=== PATIENT | female | born 1990 | race Caucasian/White ===

== ENCOUNTER 2021-01-16 10:55 | Observation (INO) ==
[2021-01-16] MEDS ORDERED: 0.9 % Sodium Chloride 1,000 ML ONE (11:29)
[2021-01-16] MEDS ORDERED: Isovue-370 500 ML BOTTLE IVP ONE (11:40)
[2021-01-16 11:56] LABS: Activated Partial Thrombo Time 29.5 Seconds (26.0-36.0); D-Dimer < 215 ng/mLFEU (0-500)
[2021-01-16 13:24] LABS: Basophils % 0.4 %; Eosinophils % 0.2 %; Hematocrit 51.5 % (35.3-44.9); Hemoglobin 17.4 g/dL (11.5-15.4); Immature Granulocytes % 0.2 % (0-4); Lymphocytes # 1.8 K/mcL (0.6-4.6); Lymphocytes % 19.8 %; Mean Corpuscular HGB Conc 33.8 g/dL (31.6-35.5); Mean Corpuscular Hemoglobin 28.2 pg (28.0-33.3); Mean Corpuscular Volume 83.6 fL (83.0-100.0); Mean Platelet Volume 9.9 fL (9.4-12.4); Monocytes # 0.8 K/mcL (0.0-1.3); Monocytes % 8.1 %; Neutrophils # 6.6 K/mcL (1.6-8.9); Platelet Count 280 K/mcL (140-400); Red Blood Count 6.16 M/mcL (3.82-4.97); Red Cell Distribution Width 12.9 % (11.5-14.5); Segmented Neutrophils % 71.3 %; White Blood Count 9.3 K/mcL (4.3-11.1)
[2021-01-16 13:50] LABS: Alanine Aminotransferase 189 Units/L (7-52); Albumin 4.8 g/dL (3.5-5.7); Albumin/Globulin Ratio 1.3 (1.1-2.2); Alkaline Phosphatase 92 Units/L (34-104); Aspartate Amino Transferase 121 Units/L (13-39); BUN/Creatinine Ratio 14 (6-26); Bilirubin,Direct 0.2 mg/dL (0.0-0.2); Bilirubin,Indirect 0.8 mg/dL (0.0-1.0); Blood Urea Nitrogen 11 mg/dL (6-20); Calcium 9.5 mg/dL (8.6-10.3); Carbon Dioxide 25 mEq/L (23-29); Chloride 102 mEq/L (98-107); Globulin 3.8 g/dL (2.4-3.5); Glucose 94 mg/dL (70-105); Osmolality,Calculated 283 (280-300); Potassium 3.6 mEq/L (3.5-5.1); Sodium 137 mEq/L (136-145); Total Protein 8.6 g/dL (6.4-8.9); eGFR For African Americans > 60 (> 60); eGFR For Non-African Americans > 60 (> 60)
[2021-01-16 16:05] LABS: Thyroid Stimulating Hormone 1.212 mcIU/mL (0.340-5.600); Troponin I 0.35 ng/mL (< 0.04)
[2021-01-16 16:09] LABS: Amphetamine Screen,Urine Positive ng/mL (Cutoff=1000); Barbiturate Screen,Urine Negative ng/mL (Cutoff=200); Benzodiazepines Screen,Urine Negative ng/mL (Cutoff=200); Cannabinoid Screen,Urine Negative ng/mL (Cutoff = 50); Cocaine Screen,Urine Negative ng/mL (Cutoff= 300); Opiate Screen,Urine Negative ng/mL (Cutoff=300); Phencyclidine Screen,Urine Negative ng/mL (Cutoff=25)
[2021-01-16] MEDS ORDERED: Naloxone 0.4 MG/ML INJ IVP PRN (17:08)
[2021-01-16] MEDS ORDERED: Melatonin 3 MG TABLET PO PRN (17:08)
[2021-01-16] MEDS ORDERED: Acetaminophen 325 MG TABLET PO PRN (17:08)
[2021-01-16] MEDS ORDERED: Ondansetron 4 MG/2 ML VIAL IVP PRN (17:08)
[2021-01-16] MEDS ORDERED: *HR* Heparin 5,000 UNIT/ML VIAL IVP PRN ×2 (17:10)
[2021-01-16] MEDS ORDERED: *HR* Heparin 5,000 UNIT/ML VIAL IVP ONE (17:10)
[2021-01-16] MEDS ORDERED: Ringers Solution, Lactated 1,000 ML IVC SCH (17:15)
[2021-01-16] MEDS ORDERED: Heparin 25,000UNIT/250ML 1/2NS 25,000 UNIT/250 ML IV.SOLN IVC SCH (17:15)
[2021-01-16] MEDS ORDERED: carvediloL 6.25 MG TABLET PO SCH (18:00)
[2021-01-16] MEDS ORDERED: Nicotine 14 MG PATCH.TD24 TD SCH (18:38)
[2021-01-16 18:45] LABS: Heparin anti-factor XA UFH 0.05 IU/mL (0.30-0.70)
[2021-01-16 18:46] LABS: Prothrombin Time 11.8 Seconds (9.4-12.1)
[2021-01-16] MEDS: BuPROPion XL (24 HR) 150 MG TABLET PO SCH (18:49)
[2021-01-16 18:59] LABS: Chol/HDL Ratio 2.5 (0-4.9); Cholesterol 182 mg/dL (< 200); Creatine Kinase 87 Units/L (30-223); HDL Cholesterol 72 mg/dL (40-59); LDL Cholesterol,Calculated 95 mg/dL (< 100); Triglycerides 73 mg/dL (< 150)
[2021-01-16] MEDS: Aspirin 81 MG TAB.CHEW PO SCH (18:59)
[2021-01-16] MEDS: *HR* LORazepam 2 MG/ML VIAL IVP PRN (18:59)
[2021-01-16 19:46] LABS: Acetaminophen < 10 mcg/mL (10-20); Salicylate < 2.5 mg/dL (15.0-30.0)
[2021-01-16] MEDS ORDERED: NON-FORMULARY MEDICATION 1 EACH EACH (Buprenorphine Hcl/Naloxone Hcl [Buprenorphin-Naloxon SL SCH (21:00)
[2021-01-16] MEDS: *HR* Buprenorphine HCl 8 MG TAB.SUBL SL SCH (23:18)
[2021-01-16] MEDS: lamoTRIgine 25 MG TABLET PO SCH (23:18)
[2021-01-17 01:16] LABS: Basophils # 0.1 K/mcL (0.0-0.2); Basophils % 0.8 %; Eosinophils # 0.2 K/mcL (0.0-0.6); Hematocrit 49.5 % (35.3-44.9); Immature Granulocytes % 0.3 % (0-4); Lymphocytes # 3.1 K/mcL (0.6-4.6); Lymphocytes % 41.6 %; Mean Corpuscular HGB Conc 32.3 g/dL (31.6-35.5); Mean Corpuscular Hemoglobin 27.4 pg (28.0-33.3); Mean Corpuscular Volume 84.6 fL (83.0-100.0); Mean Platelet Volume 9.8 fL (9.4-12.4); Monocytes # 0.5 K/mcL (0.0-1.3); Monocytes % 6.6 %; Neutrophils # 3.6 K/mcL (1.6-8.9); Platelet Count 256 K/mcL (140-400); Red Blood Count 5.85 M/mcL (3.82-4.97); Segmented Neutrophils % 48.7 %; White Blood Count 7.4 K/mcL (4.3-11.1)
[2021-01-17 01:24] LABS: Prothrombin Time 11.4 Seconds (9.4-12.1)
[2021-01-17 01:37] LABS: Alanine Aminotransferase 175 Units/L (7-52); Albumin 4.4 g/dL (3.5-5.7); Albumin/Globulin Ratio 1.3 (1.1-2.2); Alkaline Phosphatase 79 Units/L (34-104); Aspartate Amino Transferase 112 Units/L (13-39); BUN/Creatinine Ratio 15 (6-26); Bilirubin,Total 0.7 mg/dL (0.3-1.0); Blood Urea Nitrogen 12 mg/dL (6-20); Calcium 9.5 mg/dL (8.6-10.3); Carbon Dioxide 24 mEq/L (23-29); Chloride 103 mEq/L (98-107); Globulin 3.3 g/dL (2.4-3.5); Glucose 112 mg/dL (70-105); Magnesium 2.1 mg/dL (1.6-2.6); Osmolality,Calculated 283 (280-300); Phosphorous 3.4 mg/dL (2.7-4.5); Potassium 3.5 mEq/L (3.5-5.1); Sodium 136 mEq/L (136-145); Total Protein 7.7 g/dL (6.4-8.9); eGFR For African Americans > 60 (> 60); eGFR For Non-African Americans > 60 (> 60)
[2021-01-17] MEDS: *HR* LORazepam 2 MG/ML VIAL IVP PRN (03:02)
[2021-01-17 04:11] LABS: Estimated Average Glucose 100 mg/dl; Hemoglobin A1C 5.1 %
[2021-01-17 05:48] VITALS: O2SAT 97
[2021-01-17] MEDS ORDERED: Nicotine 14 MG PATCH.TD24 TD SCH (09:00)
[2021-01-17] MEDS ORDERED: Perflutren Lipid Microsphere 1.3 ML in 0.9 % Sodium Chloride 8.7 ML IVP PRN (09:05)
[2021-01-17 09:57] VITALS: BP 114/84; PULSE 103; TEMP 98
[2021-01-17] MEDS: *HR* Buprenorphine HCl 8 MG TAB.SUBL SL SCH (09:59)
[2021-01-17] MEDS: Aspirin 81 MG TAB.CHEW PO SCH (09:59)
[2021-01-17] MEDS: BuPROPion XL (24 HR) 150 MG TABLET PO SCH (09:59)
[2021-01-17] MEDS: lamoTRIgine 25 MG TABLET PO SCH (10:00)
[2021-01-17] MEDS ORDERED: Amoxicillin 500 MG CAPSULE PO SCH (12:09)
[2021-01-17] MEDS ORDERED: *HR* LORazepam 2 MG/ML VIAL IVP PRN (15:35)
== END 2021-01-17 18:12 | disposition left against medical advice (07) ==
LOC: 3BNU 10:55 → EMEROOARM 10:55 → SUATTDRO 16:44 → 2NENU 17:13
PROVIDERS: ADMIT Internal Medicine; ATTEND Internal Medicine